=== PATIENT | male | born 1980 | race African-American/Black ===

== ENCOUNTER 2018-10-13 01:43 | Emergency (ER) | payer OTHER ==
[~2018-10-13] VITALS: Ht 177.8 cm; Wt 92.5 kg
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
[2018-10-13] MEDS ORDERED: LIDOCAINE 2%/EPI 1:100,000 20 ML VIAL. ONE (01:58)
[2018-10-13] MEDS ORDERED: DIPHTH,PERTUSS(ACELL),TET TOX 0.5 ML DISP.SYRIN. VAX IM ONE ×2 (01:59→02:15)
[2018-10-13] MEDS ORDERED: TETANUS AND DIPHTHERIA TOX/PF 0.5 ML VIAL. VAX IM ONE (02:00)
[2018-10-13] MEDS ORDERED: LIDOCAINE 2%/EPI 1:100,000 20 ML VIAL. IJ ONE (02:00)
[2018-10-13] MEDS ORDERED: ACETAMINOPHEN 500 MG TABLET PO ONE (03:00)
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
[2018-10-13] MEDS ORDERED: HYDROcodon/IBUPROFEN 7.5/200MG 1 TAB TABLET ONE (04:11)
[2018-10-13 04:15] VITALS: BP 137/85
[2018-10-13] MEDS ORDERED: HYDROcodon/IBUPROFEN 7.5/200MG 1 TAB TABLET PO ONE (04:15)
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
== END 2018-10-13 04:22 | disposition home or self-care (01) ==
LOC: ER 01:43 → EEVIPCON 01:43 → ER 04:22
DX: S01.511A Laceration without foreign body of lip, initial encounter (principal); S70.00XA Contusion of unspecified hip, initial encounter; S20.219A Contusion of unspecified front wall of thorax, initial encounter; Y04.0XXA Assault by unarmed brawl or fight, initial encounter; Y93.89 Activity, other specified; Y92.89 Other specified places as the place of occurrence of the external cause; Y99.8 Other external cause status
CPT/HCPCS: 12013; 70450; 70486; 71046; 72125; 72170; 90471; 90715; 99284